=== PATIENT | female | born 1965 | race Caucasian/White ===

== ENCOUNTER 2022-02-13 09:21 | Outpatient (CLI) | payer OTHER ==
--- NOTE | 2022-02-13 13:30 | XRAY Report ---
PROCEDURE: Foot 3 View RT INDICATIONS: RT FOOT PX TECHNIQUE: 3 views of the foot were acquired. COMPARISON: None FINDINGS: Bones: No fractures or dislocations. No suspicious bony lesions. Soft tissues: No tibiotalar joint effusion. Achilles tendon appears normal. IMPRESSION: No visualized acute fracture or dislocation. However, occult injury cannot be excluded. Recommend phill rt interval imaging follow-up in 7-10 days as clinically indicated for additional evaluation. Reviewed by: Carley Paula MD on 02/13/2022 1:29 PM PDT Approved by: Carley Paula MD on 02/13/2022 1:29 PM PDT Station ID: [id number]
== END 2022-02-13 09:22 | disposition home or self-care (01) ==
LOC: DI 09:21
PROVIDERS: ATTEND Podiatrist
DX: M79.671 Pain in right foot (principal)